=== PATIENT | female | born 1970 | race Caucasian/White ===

== ENCOUNTER → 2023-08-05 | Outpatient (CLI) | payer BC ==
--- NOTE | 2023-08-05 18:32 | BD ---
EXAMINATION TYPE: Axial Bone Density DATE OF EXAM: 08/05/2023 CLINICAL HISTORY: 52 years old Female. ICD-10 CODE: M85.80 Disorder of bone Height: 66.7 Weight: 119 FRAX RISK QUESTIONS: History of Fracture in Adulthood: yes Secondary Osteoporosis: yes 3. Menopause before 45: yes, at age 44-45 yrs old RISK FACTORS HISTORY OF: hx of left shoulder weeks ago, MEDICATIONS: cholesterol meds, vit d, Thyroid Medications: yes, synthroid for about 20 yrs EXAM MEASUREMENTS: Bone mineral densitometry was performed using the [employer]. Bone mineral density as measured about the Lumbar spine is: ----- L1-L4(G/cm2): 0.943 T Score Values are as follows: ----- L1: -2.8 ----- L2: -2.6 ----- L3: -1.3 ----- L4: -1.6 ----- L1-L4: -2.0 Z Score Values are as follows: ----- L1: -1.6 ----- L2: -1.4 ----- L3: -0.2 ----- L4: -0.4 ----- L1-L4: -0.8 Bone mineral density is her first study at [facility]. Bone mineral density about the R hip (g/cm2): 0.879 Bone mineral density about the L hip (g/cm2): 0.867 T Score values are as follows: -----R Neck: -1.4 -----L Neck: -1.4 -----R Total: -1.0 -----L Total: -1.1 Z Score values are as follows: -----R Neck: -0.2 -----L Neck: -0.2 -----R Total: -0.1 -----L Total: -0.2 Bone mineral density is for a new patient at [facility]. FRAX%s: The graph provided illustrates a 9.7% chance for a major osteoporotic fx and a 0.9% chance fo r the hips probability for fx in 10 years time. IMPRESSION: Osteopenia (T Score between -2.5 and -1). There is slightly increased risk of fracture and the patient may be considered for treatment. Re-Screen 2-5 years. NOTE: T-SCORE=SD OF THE YOUNG ADULT MEAN.
== END | disposition home or self-care (01) ==
LOC: RADBDWWP 10:03
PROVIDERS: ATTEND Family Medicine
DX: M81.0 Age-related osteoporosis without current pathological fracture (principal); M85.89 Other specified disorders of bone density and structure, multiple sites; Z78.0 Asymptomatic menopausal state
CPT/HCPCS: 77080